=== PATIENT | female | born 1965 | race Caucasian/White ===

== ENCOUNTER → 2019-08-28 16:31 | Outpatient (CLI) | payer BC, SELFPAY ==
--- NOTE | ~2019-08-28 | MM_ITS ---
EXAMINATION: MM screening kenny BI w sebastian HISTORY: Screening mammogram, family history of breast cancer in her mother. TECHNIQUE: Craniocaudal and mediolateral oblique 3-D tomosynthesis images were obtained and synthetic 2-D images were generated. CAD analysis was submitted and interpreted. COMPARISON: 05/08/2018, 03/10/2017, 02/03/2016 BREAST PARENCHYMAL COMPOSITION: There are scattered areas of fibroglandular density. FINDINGS: There is no evidence of suspicious mass, calcification, or architectural distortion to sugg est malignancy in either breast. There has been no suspicious interval change. IMPRESSION: 1. No mammographic evidence of malignancy. 2. Recommend routine screening mammography in one year. BI-RADS Category 1: Negative Reviewed, dictated and finalized at location A.
== END ==
PROVIDERS: Visit Provider Obstetrics & Gynecology
DX: Z12.31 Encounter for screening mammogram for malignant neoplasm of breast (principal)
CPT/HCPCS: 77063; 77067

== ENCOUNTER 2020-07-08 08:44 | Outpatient (CLI) | payer BC, SELFPAY ==
[2020-07-08 09:08] LABS: Basophils Percent Auto 0.5 % (0.2-1.2); Eosinophils Absolute Auto 0.1 K/mm3 (0-0.3); Hematocrit 37.8 % (37.0-47.0); Hemoglobin 12.7 g/dL (12.0-15.0); Immature Granulocyte Absolute 0.01 K/mm3 (0.00-0.031); Immature Granulocyte Percent A 0.3 % (0-0.5); Lymphocytes Absolute Auto 1.36 K/mm3 (0.9-3.2); Lymphocytes Percent Auto 37.1 % (18.3-44.2); Mean Corpuscular HGB Conc 33.6 g/dl (32-36); Mean Corpuscular Volume 95.2 fl (80-100); Mean Platelet Volume 8.6 fl (7.4-10.4); Monocytes Absolute Auto 0.4 K/mm3 (0.1-0.6); Monocytes Percent Auto 10.6 % (2.6-8.5); Neutrophils Absolute Auto 1.8 K/mm3 (1.3-6.7); Neutrophils Percent Auto 48.5 % (45.5-73.1); Platelet Count Result 215 k/mm3 (150-375); Red Blood Count 3.97 M/mm3 (4.2-5.4); Red Cell Distribution Width 12.1 % (11.5-14.5); White Blood Count 3.7 K/mm3 (4.5-10.0)
[2020-07-08 09:24] LABS: Alanine Aminotransferase 21 U/L (4-35); Albumin Level 4.3 g/dL (3.5-5.1); Alkaline Phosphatase 41 U/L (38-126); Anion Gap 3 mmol/L (8-16); Aspartate Amino Transferase 31 U/L (14-36); Bilirubin,Total 0.5 mg/dL (0.2-1.3); Blood Urea Nitrogen 20 mg/dL (7-17); Calcium 9.3 mg/dL (8.4-10.2); Carbon Dioxide 35 mmol/L (22-30); Chloride 106 mmol/L (98-107); Cholesterol 192 mg/dL (0-200); Estimated Glomerular Filt Rate > 60; Glucose 91 mg/dL (65-105); HDL Direct 66 mg/dL; Potassium 4.5 mmol/L (3.4-5.0); Sodium 144 mmol/L (137-145); Triglycerides 43 mg/dL (<150)
[2020-07-08 09:25] LABS: Hemoglobin A1C 5.4 % (<5.7)
[2020-07-08 09:35] LABS: LDL Cholesterol Direct 95 mg/dL
[2020-07-08 10:12] LABS: Vitamin D 25 Hydroxy 47.4 ng/mL
== END 2020-07-08 08:45 | disposition home or self-care (01) ==
PROVIDERS: Visit Provider Nurse Practitioner Obstetrics & Gynecology
DX: Z00.00 Encounter for general adult medical examination without abnormal findings (principal)
CPT/HCPCS: 36415; 80053; 80061; 82306; 83036; 84443; 85025; 85027

== ENCOUNTER → 2021-04-30 13:27 | Outpatient (CLI) | payer BC, SELFPAY ==
--- NOTE | ~2021-04-30 | MM_ITS ---
EXAMINATION: MM screening kenny BI w sebastian HISTORY: Screening mammogram TECHNIQUE: Craniocaudal and mediolateral oblique 3-D tomosynthesis images were obtained and synthetic 2-D images were generated. CAD analysis was submitted and interpreted. COMPARISON: No prior mammogram is available for comparison at this institution. BREAST PARENCHYMAL COMPOSITION: There are scattered areas of fibroglandular density. FINDINGS: There is no evidence of suspicious mass, calcification, or architectural distortion to sugg est malignancy in either breast. There has been no suspicious interval change. IMPRESSION: 1. No mammographic evidence of malignancy. 2. Recommend routine screening mammography in one year. BI-RADS Category 1: Negative Reviewed, dictated and finalized at location A. CTOR SAFETY
== END ==
PROVIDERS: PCP Family Medicine; Visit Provider Obstetrics & Gynecology
DX: Z12.31 Encounter for screening mammogram for malignant neoplasm of breast (principal)
CPT/HCPCS: 77063; 77067

== ENCOUNTER → 2022-08-10 10:59 | Outpatient (CLI) | payer BC, SELFPAY ==
--- NOTE | ~2022-08-10 | MM_ITS ---
EXAMINATION: MM screening kenny BI w sebastian HISTORY: Screening mammogram TECHNIQUE: Craniocaudal and mediolateral oblique 3-D tomosynthesis images were obtained and synthetic 2-D images were generated. CAD analysis was submitted and interpreted. COMPARISON: 04/30/2021, 08/28/2019, 05/08/2018 bilateral screening mammogram examinations BREAST PARENCHYMAL COMPOSITION: The breasts are heterogeneously dense, which may obscure small masses . FINDINGS: There is no evidence of suspicious mass, calcification, or architectural distortion to sugg est malignancy in either breast. There has been no suspicious interval change. IMPRESSION: 1. No mammographic evidence of malignancy. 2. Recommend routine screening mammography in one year. BI-RADS Category 1: Negative Reviewed, dictated and finalized at location A.
== END ==
PROVIDERS: PCP Nurse Practitioner Family; Visit Provider Nurse Practitioner Obstetrics & Gynecology
DX: Z12.31 Encounter for screening mammogram for malignant neoplasm of breast (principal)
CPT/HCPCS: 77063; 77067

== ENCOUNTER 2024-05-16 10:16 | Outpatient (CLI) | payer OTHER, SELFPAY ==
--- NOTE | ~2024-05-16 | MM_ITS ---
EXAMINATION: MM screening kenny BI w sebastian HISTORY: Screening TECHNIQUE: Craniocaudal and mediolateral oblique 3-D tomosynthesis images were obtained and synthetic 2-D images were generated. CAD analysis was submitted and interpreted. COMPARISON: Comparison to multiple prior studies sequentially, with oldest reviewed study dated 11/2015. BREAST PARENCHYMAL COMPOSITION: Not dense: There are scattered areas of fibroglandular density. FINDINGS: There is no evidence of suspicious mass, calcification, or architectural distortion to sugg est malignancy in either breast. There has been no suspicious interval change. IMPRESSION: 1. No mammographic evidence of malignancy. 2. Recommend routine screening mammography in one year. BI-RADS Category 1: Negative Reviewed, dictated and finalized at location B. AUDITOR
== END 2024-05-16 10:17 | disposition home or self-care (01) ==
LOC: ANHIMG 10:19
PROVIDERS: PCP Nurse Practitioner Family; Visit Provider Nurse Practitioner Obstetrics & Gynecology
DX: Z12.31 Encounter for screening mammogram for malignant neoplasm of breast (principal)
CPT/HCPCS: 77063; 77067

== ENCOUNTER 2025-05-19 10:22 | Outpatient (CLI) | payer OTHER, SELFPAY ==
--- NOTE | ~2025-05-19 | MM_ITS ---
EXAMINATION: MM screening kenny BI w sebastian HISTORY: Screening. TECHNIQUE: Craniocaudal and mediolateral oblique 3-D tomosynthesis images were obtained and synthetic 2-D images were generated. CAD analysis was submitted and interpreted. COMPARISON: 2023, 2022, and 2019. BREAST PARENCHYMAL COMPOSITION: Dense: The breasts are heterogeneously dense, which may obscure small masses. FINDINGS: No suspicious masses are seen. There are no suspicious calcifications. No unexplained architectural distortion is seen. There are no skin or nipple abnormalities identified. There is no adenopathy seen on the images submitted. IMPRESSION: No mammographic evidence to suggest malignancy is seen. The patient may return to screening mammography as per ACR guidelines. BI-RADS 1 - Negative. Reviewed, dictated and finalized at location A. 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
--- OUTSIDE RECORDS SUMMARY | 2025-05-19 12:01 | XMS_ITS | Clinical Summary ---
Author Organization [facility] [address] [place] [address] Care Team Providers Care Premium Cancellation Clerk Name Role Phone Denise Oliver NP Primary Care Provider [phone] Allergies No known active allergies Medications levothyroxine (SYNTHROID) 25 mcg tablet Take 1 tablet (25 mcg total) by mouth 2 tablets mon-mon,mon sun and 1 tablet Active multivitamin tabletIndicatio ns:Vitamin Deficiency Prevention Take 1 tablet by mouth Active FIBER, PSYLLIUM HUSK, ORAL Take 30 mg by mouth daily Active clobetasoL (TEMOVATE) 0.05 % external solutionIndicat ions:Dermatosis of the Scalp Apply topically 2 (two) times a day Active montelukast (SINGULAIR) 10 mg tabletIndicatio ns:Seasonal Allergic Rhinitis Take 1 tablet (10 mg total) by mouth nightly 90 tablet 3 5 Active cetirizine (ZyrTEC) 10 mg tabletIndicatio ns:Environmenta l allergies Take 1 tablet (10 mg total) by mouth daily 90 tablet 3 5 Active Additional Information Patient taking differently:10 mg oralAs needed, allergies, Reported on 03/03/2025 fluticasone propionate (FLONASE) 50 mcg/actuation nasal sprayIndication s:Environmental allergies Administer 1 spray into each nostril daily as needed for rhinitis 3 each 3 5 Active oxyBUTYnin XL (DITROPAN XL) 15 mg 24 hr tabletIndicatio ns:OAB (overactive bladder) Take 1 tablet (15 mg total) by mouth daily 30 tablet 3 Active citalopram (CeleXA) 10 mg tablet Take 1 tablet (10 mg total) by mouth daily 90 tablet 3 Active ondansetron (ZOFRAN) 4 mg tabletIndicatio ns:Nausea and vomiting, unspecified vomiting type,Colon cancer screening Take 1 tablet (4 mg) total 30 minutes before starting colonoscopy prep. Use the 2nd tablet as needed for nausea and vomiting. 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 Orders: Vitamin D 25 hydroxy; Future BMI 25.0-25.9,adult 12/20/2024 Assessment & Plan (12/20/2024 6:33 PM CDT): Encouraged regular physical activity--moderate activity for a total of 150 minutes per week over 3-5 days. Encouraged healthy diet with regular fresh fruits and vegetables limited in processed carbohydrates. Environmental allergies 12/20/2024 Assessment & Plan (12/20/2024 6:33 PM CDT): Orders: montelukast (SINGULAIR) 10 mg tablet; Take 1 tablet (10 mg total) by mouth nightly cetirizine (ZyrTEC) 10 mg tablet; Take 1 tablet (10 mg total) by mouth daily fluticasone propionate (FLONASE) 50 mcg/actuation nasal spray; Administer 1 spray into each nostril daily as needed for rhinitis Seborrheic dermatitis 12/20/2024 Assessment & Plan (12/20/2024 6:33 PM CDT): Scalp inflammation, controlled with clobetasol. Encounters Date Type Department Care Team Description 04/22/2025 Telephone [facility] at [address] [place] [address] Hien Aguilar Colonoscopy Cancel 04/22/2025 Orders Only [facility] at [address] [place] [address] Leoncio Simon MD Colon cancer screening (Primary Dx); Nausea and vomiting, unspecified vomiting type 04/17/2025 Orders Only [facility] at [address] [address] Denise Oliver NP Colon cancer screening (Primary Dx) 03/24/2025 Telephone [facility] at [address] [place] [address] Ximena Hernandez 03/11/2025 Results Follow-Up [facility] [address] [place] [id number] Oniel Edmonds NP Pap, reflex HPV 03/03/2025 3:00 PM CDT Office Visit [facility] at [address] [phone] nOiel Edmonds NP Well woman exam (Primary Dx); Pelvic pain in female; History of loop electrosurgical excision procedure (LEEP) of cervix; Encounter to establish care; Encounter for screening mammogram for breast cancer from Last 3 Months Surgical History Surgery Date Site/Laterality Comments TUBAL LIGATION 05/29/1991 - 05/28/1992 Bilateral Medical History Medical History Date Comments Hypothyroidism Emory's disease OAB (overactive bladder) Anxiety Family History Medical History Relation Name Comments Atrial fibrillation Father Defibril lator Breast cancer Mother Colon cancer Neg Hx Ovarian cancer Neg Hx Uterine cancer Neg Hx Relation Name Status Comments Father Alive Mother Alive Social History Tobacco Use Types Packs/Day Years Used Date Smoking Tobacco: Never Passive Smoke Exposure: Never Smokeless Tobacco: Never Tobacco Cessation:Counseling Given: Not Answered Alcohol Use Standard Drinks/Week Comments Yes 6 (1 standard drink = 0.6 oz pur e alcohol) PHQ-2 Answer Date Recorded PHQ-2 Total Score (If total score is 3 or more points, staff should administer the PHQ-9) 0 03/03/2025 AUDIT-C Answer Date Recorded Q1: How often do you have a drink containing alc ohol? 2-3 times a week 03/03/2025 Q2: How many drinks containi ng alcohol do you have on a typical day when you are drinking? 3 or 4 03/03/2025 Q3: How often do you have si x or more drinks on one occasion? Monthly 03/03/2025 Comments No Sex and Gender Information Value Date Recorded Sex Assigned at Not on file Legal Sex Female 9:37 AM CDT Gender Identity Not on file Sexual Orientation Not on file Obstetrics History Para Term AB IAB SAB Ectopic Multiple Livin g Live Births 3 3 Date Outcome GA Total Labor Labor/2nd/3rd Weight Sex Type Anes PTL Marcia A1 A5 Name Clin 985 Para F Vagina l Epidur al Complications:Gestational di abetes 988 Para F Vagina l Epidur al Complications:None 992 Para M Vagina l Epidur al Complications:None Last Filed Vital Signs Vital Sign Reading Time Taken Comments Blood Pressure 104/70 03/03/2025 3:26 PM CDT Pulse 64 12/20/2024 9:48 AM CDT Temperature 36.3 C (97.3 F) 12/20/2024 9:48 AM CDT Respiratory Rate 16 12/20/2024 9:48 AM CDT Oxygen Saturation 98% 12/20/2024 9:48 AM CDT Inhaled Oxygen Concentration - - Weight 65.8 kg (145 lb) 03/03/2025 3:26 PM CDT Height 161.3 cm (5' 3.5) 03/03/2025 3:26 PM CDT Body Mass Index 25.28 03/03/2025 3:26 PM CDT Plan of Treatment Upcoming Encounters Date Type Department Care Team (Late st Contact Info) Description 06/20/2025 8:30 AM OSHA INSPECTOR Hospital Encounter [address] [address] Leoncio Simon MD [address] [place] [id number] 06/20/2025 8:30 AM OSHA INSPECTOR - 06/20/2025 9:00 AM OSHA INSPECTOR Surgery [address] [address] Leoncio Simon MD [address] [place] [id number] COLONOSCOPY Scheduled Procedures Name Priority Associated Diagnoses Date/Ti me COLONOSCOPY Colon cancer screening 06/20/2025 8:30 AM OSHA INSPECTOR Health Maintenance Due Date Last Done Comments Breast Cancer Screening-Mammogram 1965 Colon Cancer Screening-Colonoscopy 1965 DTaP/Tdap/Td Vaccine (1 - Tdap) 1974 Zoster Vaccine (1 of 2) 2013 Influenza Vaccine (#1) 2025 Cervical Cancer Screening 03/03/2026 03/03/2025 Depression Screening 03/03/2026 03/03/2025, 12/20/2024 Regular Well Visit/Exam 18-64 03/03/2026 03/03/2025, 12/20/2024 Hepatitis B Screening Discontinued Hepatitis C Screening Discontinued Pneumococcal vaccine <65 Aged Out No longer eligible based on patient's age to complete this topic Procedures Procedure Name Priority Date/Time Associated Diagnosis Comments PAP, REFLEX HPV Routine 03/03/2025 4:06 PM CDT Well woman exam from Last 3 Months Results * Pap, reflex HPV (03/03/2025 4:06 PM CDT) Clinical indication Comment [facility] - 01 Comment: NEGATIVE FOR INTRAEPITHELIAL LESION OR MALIGNANCY. CELLULAR CHANGES ASSOCIATED WITH ATROPHY AND INFLAMMATION ARE PRESENT. THIS SPECIMEN WAS RESCREENED PART OF OUR SEED ANALYSIS LABORATORY ASSISTANT PROGRAM. Specimen adequacy: Comment [facility] - 01 Comment: Satisfactory for evaluation. Endocervical component may not be distinguished in cases of atrophy. Clinician provided ICD10 Comment [facility] - 01 Comment:Z01.419 Performed by Comment [facility] 02 Comment:Akosua Quinones, Buncher Operator (ASCP) QC reviewed by Comment [facility] - 01 Comment:Kathi Mckinney pervisory Buncher Operator (ASCP) . . [facility] - 01 Note: Comment [facility] - 01 Comment: The Pap smear is a screening test designed to aid in the detection of premalignant and malignant conditions of the uterine cervix. It is not a diagnostic procedure and should not be used as the sole means of detecting cervical cancer. Both false-positive and false-negative reports do occur. Test methodology CANCELED [facility] - 01 Comment: The Thin Prep(R) Apprentice was unable to read this specimen. Therefore a manual review was performed. Result canceled by the ancillary. . Comment [facility] - 01 Comment: The HPV DNA reflex criteria were not met with this specimen result therefore, no HPV testing was performed. Thin prep 03/03/2025 4:06 PM CDT 03/03/2025 Narrative [facility] - 03/11/2025 2:10 PM CDT [facility] at: [facility] [address] [place], [place] [id number] Durable Medical Equipment Technician: Gwendolyn Hou MD, Phone: [phone] [facility] [address] [place], [place] [id number] Durable Medical Equipment Technician: Isela Frye PhD, Phone: [phone] Specimen Comment: [id number] Specimen Comment: No. of containers..01 ThinPrep Vial us Oniel Edmonds NP LAB CYTOLOGY ORDERABLES Edited Result - Final [facility] - 01 [facility] 02 from Last 3 Months Insurance [facility] CHOICE PLUS [facility] CHOICE PLUS Care Teams Premium Cancellation Clerk Relationship Specialty Start Date End Date Denise Oliver NP [address] [facility] [address] [place] [address] PCP - General Internal Medicine 12/20/24
== END 2025-05-19 10:23 | disposition home or self-care (01) ==
LOC: ANHFOHIMG 10:27
PROVIDERS: PCP Nurse Practitioner; Visit Provider Nurse Practitioner Obstetrics & Gynecology
DX: Z12.31 Encounter for screening mammogram for malignant neoplasm of breast (principal)
CPT/HCPCS: 77063; 77067